=== PATIENT | male | born 1965 | race African-American/Black ===

== ENCOUNTER 2024-07-27 14:36 | Outpatient (AMB) | payer MEDICAID, SELFPAY ==
--- NOTE | 2024-07-27 15:06 | A.OFFVIS_ITS ---
Intake Visit Reasons: erectile dysfunction Intake Note: New Patient presents for initial visit for erectile dysfunction Urology Medications: none Blood Thinner: aspirin Maternal Fetal Physician Required: No Accompanied by: Self / Same As Patient Allergies No Known Allergies Allergy (Verified 07/27/24 15:36) Medication List - Last Reconciled 07/27/24 by FRANK Deshpande- amlodipine 5 mg PO aspirin 81 mg PO DAILY atorvastatin 40 mg PO DAILY HPI Comments Details: Les is a very pleasant 58-year-old male patient of Dr. Chris. He has a past medical history of cigar dependence, type 2 diabetes, PTSD, depression, history of incarceration from 2012 to 2017, hypertension, and erectile dysfunction. He presents to the office today as a new patient for erectile dysfunction. In discussion with the patient today he reports having fo llowed up with his PCP in discussing ongoing issues he has been experiencing with his erections over the last 2-3 years at which time recommendations were made for urology referral for further assessment evaluation. When asked he does report to being able to obtain and maintain his erections however he does not feel there was firm as with a had been previously. He does report libido. He otherwise denies any bothersome urinary issues. He denies urinary urgency, urinary frequency, incontinence, nocturia, hematuria, dysuria, foul smelling urine, changes to urinary stream, flank pain, fever, and or chills. He is happy with his current voiding parameters. In office urinalysis results reviewed with the patient today. We discussed at length potential causes of erectile dysfunction as well as further treatment options and risks and benefits of these treatment options. We also discussed importance of lifestyle modifications to assist with this urological condition as well as overall health and well-being. All questions were answered. He otherwise offers no other issues or concerns at this time. Discussion Notes During the consultation, we discussed the patient's erectile dysfunction, which has been ongoing for a few years. Contributing lifestyle factors, including stress, sleep deprivation, and past alcohol consumption, were reviewed. We discussed the importance of lifestyle modifications, such as diet and exercise, as they can mitigate diabetes and improve erectile function. I proposed starting the patient on daily Tadalafil (Cialis) 5 mg, explaining the potential benefits and how it might assist in improving erectile function. The risk of side effects was also addressed. The patient expressed understanding and agreement with this approach. Continuous evaluation of symptoms will be necessary to potentially adjust the treatment plan Plan The patient will start a daily regimen of Tadalafil at 5 mg to manage erectile dysfunction, based on his reported symptoms and lifestyle evaluations. The choice of Tadalafil was made considering its efficacy and dosing convenience. It is important for the patient to adhere to lifestyle modifications to complement the medication, such as a balanced diet and exercise, to help manage diabetes and improve overall erectile function. This treatment and any modifications will be reassessed at the next follow-up appointment. The patient understands the plan, the potential need for dosage adjustments, and will monitor the medication's effectiveness and any side effects. [facility] Medical History Erectile dysfunction Tobacco abuse Type 2 diabetes mellitus without complication, without long-term current use of insulin Post traumatic stress disorder (PTSD) Depression, major, in remission Class 1 obesity due to excess calories with body mass index (BMI) of 33.0 to 33.9 in adult Decreased hearing of right ear History of incarceration Hypertension Pre-diabetes Surgical History History of open reduction and internal fixation (ORIF) procedure Review of Systems Const All systems reviewed & are unremarkable except as noted in HPI and below Physical Exam Const General: cooperative, healthy appearing, comfortable, no acute distress, well developed, alert and awake Orientation/consciousness: patient oriented x3 Limitations: no limitations HEENT Head: Yes normal to inspection, Yes normocephalic and Yes atraumatic Ears: hearing grossly normal bilaterally Eyes General: appearance normal, both eyes and all related structures Neck Neck: Yes normal visual inspection and Yes trachea midline Chest Chest palpation & inspection: normal inspection of the chest Resp Effort & Inspection: normal respiratory effort and able to speak in complete sentences Cardio Rate: regular rate GI Inspection: Yes normal to inspection General: Yes no CVA tenderness Back/Spine/Pelvis Back: no CVA tenderness Skin General skin exam: no rashes or lesions noted Neuro General: patient oriented x3 Extrem General: Yes normal to inspection Psych Appearance: grossly normal and well kempt Mental Status: mental status grossly normal Speech and movement: Normal speech and movement present and Clear speech present Affect: normal affect Attitude: cooperative Thought process: Normal thought process present Thought content: Normal thought content present Insight: Fair insight present (Psych) Judgement: Fair judgement present (Psych) Results AMB Urinalysis, Automated UA Leukoctes 0 Manuel/uL Last Edit by [employer] on 07/27/24 15:34 UA Nitrite Last Edit by [employer] on 07/27/24 15:34 UA Urobilinogen 0.2 mg/dL Last Edit by [employer] on 07/27/24 15:34 UA Protein 0 mg/dL Last Edit by [employer] on 07/27/24 15:34 UA pH 5.5 Last Edit by [employer] on 07/27/24 15:34 UA Blood 0 Александр/uL Last Edit by [employer] on 07/27/24 15:34 UA Specific Hershey 1.030 Last Edit by [employer] on 07/27/24 15:34 UA Ketone Last Edit by [employer] on 07/27/24 15:34 UA Bilirubin 0 mg/dL Last Edit by [employer] on 07/27/24 15:34 UA Glucose 0 mg/dL Last Edit by [employer] on 07/27/24 15:34 Results Reviewed Results Reviewed: Laboratory Last Values Urine pH (Auto) 5.5 07/27/24 15:32 Specific Hershey (Auto) 1.030 07/27/24 15:32 Urine Protein (Auto) 0 mg/dL 07/27/24 15:32 Glucose (UA)(Auto) 0 mg/dL 07/27/24 15:32 Urine Blood (Auto) 0 Александр/uL 07/27/24 15:32 Urine Bilirubin (Auto) 0 mg/dL 07/27/24 15:32 Urine Urobilinogen (Auto) 0.2 mg/dL 07/27/24 15:32 Leukocyte Esterase (Auto) 0 Manuel/uL 07/27/24 15:32 Assessment & Plan Assessment & Plan (1) Erectile dysfunction associated with type 2 diabetes mellitus: Code(s): E11.69 - Type 2 diabetes mellitus with other specified complication; N52.1 - Erectile dysfunction due to diseases classified elsewhere Category: Medical Plan In office urinalysis results reviewed with the patient today; as noted above. We discussed further treatment options of erectile dysfunction as well as risks and benefits of these treatment options We discussed penile pump in ring We discussed importance of lifestyle modifications to assist with ED as well as overall health and well-being. Will obtain PSA and A1c for further assessment evaluation. Start Cialis 5 mg daily as discussed and prescribed. He currently denies any bothersome urinary issues or concerns. Reports be happy with current voiding parameters. Follow-up in 3 months with labs; or sooner with any issues, concerns, and or questions. Orders: Orders Hemoglobin A1c Today E11.9 - Type 2 diabetes mellitus without complications AMB Urinalysis Automated Today Z13.9 - Encounter for screening, unspecified Prostate Specific Antigen Today E11.69 - Type 2 diabetes mellitus with other specified complication, N52.1 - Erectile dysfunction due to diseases classified elsewhere Medications: New tadalafil (Cialis) [id number] [facility] [id number] Member [id number] 5 mg PO DAILY 90 days 90 tabs 0RF Patient Instructions: The patient had an opportunity to ask questions regarding the treatment plan. All questions were answered. Physical exam, labs, and imaging were discussed and reviewed in detail. As well as risks, benefits, and discussion of treatment choices. No major barriers to understanding were identified. The patient expressed understanding and agreement with the above treatment plan. The patient was made aware they should contact our office by phone for worsening of their current condition, the appearance of new symptoms, or with any questions or concerns. Compliance is encouraged with any medications and follow up testing that is ordered. It is a privilege to be allowed the opportunity to participate in? your urological care.? Again, if you have any questions or concerns If you have any questions or concerns please do not hesitate to contact me. The office is [phone]. This note is constructed using voice recognition software. While every effort has been made to ensure accuracy bag end sewer errors may have been included. Yours sincerely, ASIM Deshpande Coding Level of Care Code New Pt Level 4 (23145) Diagnoses Erectile dysfunction associated with type 2 diabetes mellitus E11.69; N52.1
--- OUTSIDE RECORDS SUMMARY | 2024-07-27 17:15 | XMS_ITS | Encounter Summary ---
Author Organization [facility] Address [address] [place] [address] Care Team Providers Care Customs Broker Name Role Phone Elsa Chris Primary Care Provider [phone] Encounter Details Date Type Department Care Team ([facility] st Contact Info) Description 07/26/2024 Interim Notes [address] [phone] Elsa Chris PA [address] [place] [address] Social History Tobacco Use Types Packs/Day Years Used Date Smoking Tobacco: Former Cigarettes Cigars Passive Smoke Exposure: Never Smokeless Tobacco: Never Comments:QUIT cigs a few mon ths ago. Alcohol Use Standard Drinks/Week Comments Not Currently 0 (1 standard drink = 0.6 oz pur e alcohol) Social Connections Answer Date Recorded Connectedness 0 12/20/2023 Financial Resource Strain Answer Date R ecorded Financial Resource Strain 0 2018 Stress Answer Date Recorded Stress 0 11/21/2018 Physical Activity Answer Date Recorded Physical Activity 0 11/21/2018 Food Insecurity Answer Date Recorded Food 0 12/30/2023 Transportation Needs Answer Date Record ed Transportation 0 11/21/2018 Housing Stability Answer Date Recorded Housing 0 11/21/2018 Safety and Environment Answer Date Jaden rded Safety 0 11/21/2018 Utilities Answer Date Recorded Utilities 0 11/21/2018 Employment Answer Date Recorded Stress 0 12/20/2023 Sex and Gender Information Value Date Recorded Sex Assigned at Male 11/15/2017 6:04 AM PDT Legal Sex Male 6:18 AM PDT Gender Identity Male 11/15/2017 6:04 AM PDT Sexual Orientation Straight 11/15/2017 6: 04 AM PDT 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 Not on file Not on file documented as of this encounter Progress Notes * Brenden Porter MA - 07/26/2024 9:15 AM EDT [employer] form and last ov visit fax to [phone] and sent to [facility] documented in this encounter Plan of Treatment Upcoming Encounters Date Type Department Care Team (Late st Contact Info) Description 07/31/2024 1:00 PM EDT Office Visit [facility] [address] [place] [phone] Rosi Greenberg, DMD [address] [place] [address] 01/12/2025 1:00 PM EDT Office Visit [facility] [address] [place] [phone] [place] Raisa Ambar [address] [place] [address] documented as of this encounter Visit Diagnoses Not on filedocumented in this encounter Additional Health Concerns Assessment Noted Time PHQ-9 Depression Total Score: 0 07/19/19 25 2:44 PM PDT documented as of this encounter Care Teams Customs Broker Relationship Specialty Start Date End Date Elsa Chris PA [address] [place] [id number] PCP - General Primary Care 07/30/23 documented as of this encounter
--- OUTSIDE RECORDS SUMMARY | 2024-07-27 17:15 | XMS_ITS | Clinical Summary ---
Author Organization [facility] Address [address] [place] [address] Care Team Providers Care Fish Warden Name Role Phone Elsa Chris Primary Care Provider [phone] Source Comments PLEASE NOTE, if this patient is a minor, it may be UNLAWFUL to discuss sensitive information that is contained in these records (such as FAMILY PLANNING, MENTAL HEALTH or SUBSTANCE ABUSE) with the minor patient's parent or other person without the patient's specific authorization.[facility] Allergies No known active allergies Medications blood pressure monitorIndicatio ns:Essential hypertension Lifetime need 1 Kit 021 Active blood-glucose meter monitoring kitIndications:T ype 2 diabetes mellitus without complication, without long-term current use of insulin ([facility]) as needed for blood glucose monitoring FREESTYLE GLUCOMETER. Dx: E11.9 Check BG once daily. 1 Each 021 Active blood pressure kit med and lrgIndications:E ssential hypertension Check BP daily 1 Kit 023 Active alcohol swabs Check blood glucose once daily in the AM before breakfast 100 Each 2 023 Active lancets (FREESTYLE LANCETS) 28 gauge 4 (four) times daily before meals and nightly 100 Each 5 023 Active MISCELLANEOUS MEDICAL SUPPLY MISCIndications: Essential hypertension by miscellaneous route daily Blood pressure Monitor size M. Dx: hypertension Duration: lifetime 1 Each 024 Active aspirin [address] tabletIndication s:Essential hypertension Take 1 Tablet by mouth once daily 90 Tablet 1 024 Active ibuprofen 600 mg tabletIndication s:Chronic apical periodontitis Take 1 Tablet by mouth 4 (four) times daily as needed for mild pain 20 Tablet 024 Active sildenafiL (VIAGRA) 25 mg tabletIndication s:Erectile dysfunction, unspecified erectile dysfunction type Take 1 Tablet by mouth once daily as needed for erectile dysfunction 30 Tablet 1 025 Active blood sugar diagnostic (FREESTYLE LITE STRIPS) stripsIndication s:Type 2 diabetes mellitus without complication, without long-term current use of insulin (HCC-CMS) 1 Each 4 (four) times daily before meals and nightly 100 Each 5 025 Active atorvastatin (LIPITOR) 40 mg tabletIndication s:Type 2 diabetes mellitus without complication, without long-term current use of insulin ([facility]) Take 1 Tablet by mouth once daily 90 Tablet 1 025 Active amLODIPine (NORVASC) 5 mg tabletIndication s:Essential hypertension Take 1 Tablet by mouth once daily 90 Tablet 025 Active nicotine (NICODERM, STEP 1) 21 mg/24 hr patchIndications :Tobacco abuse Place 1 Patch onto the skin once daily (every 24 hours) Apply new patch to non-hairy, clean, dry skin on the upper body or upper outer arm; each patch should be applied to a different site. Apply immediately after removing backing from patch; press onto skin for ~10 seconds. Patch may be worn for 16 or 24 hours. 42 Patch 024 2024 Discontinued(T herapy completed/Not needed) nicotine (NICODERM, STEP 2) 14 mg/24 hr patchIndications :Tobacco abuse Place 1 Patch onto the skin once daily (every 24 hours) 28 Patch 024 2024 Discontinued(T herapy completed/Not needed) nicotine (NICODERM, STEP 3) 7 mg/24 hr patchIndications :Tobacco abuse Place 1 Patch onto the skin once daily (every 24 hours) 28 Patch 024 2024 Discontinued(T herapy completed/Not needed) amLODIPine (NORVASC) 5 mg tabletIndication s:Essential hypertension Take 1 Tablet by mouth once daily 90 Tablet 024 2024 Discontinued(R eorder (E-Cancel Not Sent)) atorvastatin (LIPITOR) 40 mg tabletIndication s:Type 2 diabetes mellitus without complication, without long-term current use of insulin ([facility]) Take 1 Tablet by mouth once daily 90 Tablet 1 024 2024 Discontinued(R eorder (E-Cancel Not Sent)) blood sugar diagnostic (FREESTYLE LITE STRIPS) stripsIndication s:Type 2 diabetes mellitus without complication, without long-term current use of insulin ([facility]) daily 50 Each 5 025 2024 Discontinued Active Problems Problem Noted Date Diagnosed Date Erectile dysfunction 07/18/2024 Tobacco abuse 10/06/2023 Type 2 diabetes mellitus wit hout complication, without long-term current use of insulin ([facility]) 09/22/2023 PTSD (post-traumatic stress disorder) 07/09/2023 Overview (07/09/2023): Was diagnosed a couple years ago with PTSD when he was living in a senior care. Depression, major, in remission ([facility]) 0 11/10/2022 Encounter for screening colonoscopy 11/10/2022 History of open reduction an d internal fixation (ORIF) procedure 09/23/2021 HTN (hypertension) 11/15/2017 History of incarceration [id number] 11/15/2017 Decreased hearing, right 11/15/2017 Resolved Problems Problem Noted Date Diagnosed Date Resolved Date Class 1 obesity due to exces s calories with serious comorbidity and body mass index (BMI) of 33.0 to 33.9 in adult 12/30/2018 07/18/2024 Encounters Date Type Department Care Team Description 07/26/2024 Interim Notes [address] [phone] Elsa Chris PA 07/18/2024 2:20 PM EDT Office Visit [address] [phone] Elsa Chris PA Annual physical exam (Primary Dx); Primary hypertension; Type 2 diabetes mellitus without complication, without long-term current use of insulin ([facility]); PTSD (post-traumatic stress disorder); Erectile dysfunction, unspecified erectile dysfunction type; Essential hypertension 07/13/2024 2:20 PM EDT Office Visit [facility] [address] [place] [phone] Dionicio, Rosi, DMD Tooth missing, unspecified edentulism (Primary Dx) 07/12/2024 Interim Notes [address] [phone] Chio Tsang [place] 07/11/2024 Interim Notes [address] [phone] Sherry Sánchez [place] 07/06/2024 2:00 PM EDT Office Visit [facility] [address] [place] [phone] Raisa Wells Encounter for dental examination and cleaning with abnormal findings (Primary Dx); Stage 3 grade C localized periodontitis per AAP/EFP 2017 classification 07/04/2024 Interim Notes [address] [phone] Elsa Chris PA 06/30/2024 2:20 PM EDT Office Visit [facility] [address] [place] [phone] Dionicio, Rosi, DMD Tooth missing, unspecified edentulism (Primary Dx) 06/16/2024 2:20 PM EDT Office Visit [facility] [address] [place] [phone] Dionicio, Rosi, DMD Tooth missing, unspecified edentulism (Primary Dx) 06/08/2024 1:00 PM EST Office Visit [facility] [address] [place] [phone] Dionicio, Rosi, DMD Tooth missing, unspecified edentulism (Primary Dx) 06/07/2024 10:00 AM EST Telemedicine Visit [address] [phone] Elsa Chris PA Erectile dysfunction, unspecified erectile dysfunction type (Primary Dx) 06/02/2024 1:40 PM EST Office Visit [facility] [address] [place] [phone] Rsoi Greenberg, DMD Tooth missing, unspecified edentulism (Primary Dx) 05/26/2024 2:20 PM EST Office Visit [facility] [address] [place] [phone] Rosi Greenberg, DMD Tooth missing, unspecified edentulism (Primary Dx) 05/19/2024 1:40 PM EST Office Visit [facility] [address] [place] [phone] Rosi Greenberg, DMD Tooth missing, unspecified edentulism (Primary Dx) from Last 3 Months Immunizations Immunization Administration Dates Next Due Hep A, adult 05/06/2021,08/06/2020 Hep B, Adult/Adol (ENERGIX/RECOMBIVAX) 9,11/01/2018 Hep B,adult,adjuvanted (HEPLISAV) 08/06/2020 Moderna COVID-19 Vaccine, re d cap blue label, 12+ Primary Series 05/06/2021,03/18/2021 PNEUMOCOCCAL POLYSACCHARIDE PPV23 11/01/2018 PPD 04/26/2018 TDAP 07/08/2021,11/01/2018 ZOSTER VACCINE, RECOMBINANT (SHINGRIX) 2,08/06/2020 Family History Medical History Relation Name Comments Cancer Father stomach cancer? Diabetes Father Diabetes Mother Cancer Sister breast? Relation Name Status Comments Father Mother Sister Alive Social History Tobacco Use Types Packs/Day Years Used Date Smoking Tobacco: Former Cigarettes Cigars Passive Smoke Exposure: Never Smokeless Tobacco: Never Tobacco Cessation:Counseling Given: Not Answered Comments:QUIT cigs a few months ago. Alcohol Use Standard Drinks/Week Comments Not [...] Industry Job Start Date Job End Date [email or web address] Not on file Not on file Not on file Last Filed Vital Signs Vital Sign Reading Time Taken Comments Blood Pressure 118/80 07/18/2024 2:44 PM EDT Pulse 63 07/18/2024 2:44 PM EDT Temperature 36.7 ??C (98 ??F) 07/18/2024 2:44 PM EDT Respiratory Rate 18 07/18/2024 2:44 PM EDT Oxygen Saturation 98% 07/18/2024 2:44 PM EDT Inhaled Oxygen Concentration - - Weight 84.8 kg (187 lb) 07/18/2024 2:44 PM EDT Height 175.3 cm (5' 9 ) 07/18/2024 2:44 PM EDT Body Mass Index 27.62 07/18/2024 2:44 PM EDT Plan of Treatment Upcoming Encounters Date Type Department Care Team (Late st Contact Info) Description 07/31/2024 1:00 PM EDT Office Visit [facility] [place] [phone] Rosi Greenberg, DMD [address] [place] [address] 01/12/2025 1:00 PM EDT Office Visit [facility] [place] [phone] Raisa Wells Y [address] [place] [address] Health Maintenance Due Date Last Done Comments Dental Perio Charting [address] CT Colonography 11/07/2008 Colonoscopy 11/07/2008 Colorectal Cancer Screening 11/07/2008 FIT/gFOBT 11/07/2008 Fecal DNA 11/07/2008 Flexible Sigmoidoscopy 11/07/2008 Imm-Pneumococcal (2 of 2 - PCV) 11/02/2019 11/01/2018 Diabetes Foot Exam 11/11/2023 11/10/2022 Lipid Screening 02/12/2024 02/11/2023, 04/2021, 08/06/2020 Diabetes HbA1c 04/07/2024 10/06/2023, 12/2022, 05/06/2021, Additional history exists Imm-Influenza (#1) 2024 Postponed from 12/05/2023 (Patient postponement) Tobacco Cessation Counseling (#1) 10/05/2024 11/10/2022 Tobacco Screening 10/05/2024 10/06/2023, 11/10/2022 Depression Monitoring 10/17/2024 07/18/2024 , 04/18/2024, 01/06/2024, Additional history exists [id number] ( season) 2024 05/06/2021, 03/18/2021 Postponed from 12/05/2023 (Patient postponement) LTBI Screening (#1) 01/05/2025 01/06/2024, 9 Serum Creatinine 01/05/2025 01/06/2024, 04/2021, 08/06/2020 Urine Albumin Creatinine Ratio Screening 01/05/2025 01/06/2024, 11/29/2018 Dental Prophy 01/07/2025 07/06/2024, 03/13/2024 Retinopathy Screening 06/28/2025 06/28/2024 (Managed by Outside Provider), 03/06/2023 Dental BW 07/08/2025 07/06/2024, 03/13/2024 Dental Examination 07/08/2025 07/06/2024, 1 05/14/2023, 10/06/2023 Annual Preventive Care Visit 07/18/2025 07/18/2024, 11/10/2022, 11/15/2017 Anxiety Screening 07/18/2025 07/18/2024 Dental FMX/Pano 03/15/2029 03/13/2024 Imm-DTaP/Tdap/Td (3 - Td or Tdap) 07/09/2031 07/08/2021, 11/01/2018 HIV Screening Completed 08/06/2020 Hepatitis C Screening Completed 08/06/2020 Imm-Hepatitis B Completed 08/06/2020, 11/05, 11/01/2018 Imm-Hepatitis A Completed 05/06/2021, 08/06/2020 Imm-Zoster, Recombinant Completed 05/06/2021, 08/06 Alcohol and Drug Screen Completed 06/08/19, 04/18/2024, 01/06/2024, Additional history exists Procedures Procedure Name Priority Date/Time Associated Diagnosis Comments OFFICE VISIT OBSERVATION NO OTHER SRVC PERFORMED Routine 07/13/2024 2:20 PM EDT Tooth missing, unspecified edentulism PERIODIC ORAL EVALUATION ESTABLISHED PATIENT Routine 07/06/2024 2:00 PM EDT Encounter for dental examination and cleaning with abnormal findings Stage 3 grade C localized periodontitis per AAP/EFP 2017 classification DENTAL CASE MANAGEMENT - MOTIVATIONAL INTV Routine 07/06/2024 2:00 PM EDT Encounter for dental examination and cleaning with abnormal findings Stage 3 grade C localized periodontitis per AAP/EFP 2017 classification PROPHYLAXIS - ADULT Routine 07/06/2024 2 :00 PM EDT Encounter for dental examination and cleaning with abnormal findings Stage 3 grade C localized periodontitis per AAP/EFP 2017 classification BITEWINGS - FOUR RADIOGRAPHIC IMAGES Routine 07/06/2024 2:00 PM EDT Encounter for dental examination and cleaning with abnormal findings Stage 3 grade C localized periodontitis per AAP/EFP 2017 classification CARIES RISK ASSESSMENT & DOC FINDING HIGH RISK Routine 07/06/2024 2:00 PM EDT Encounter for dental examination and cleaning with abnormal findings Stage 3 grade C localized periodontitis per AAP/EFP 2017 classification NUTRITIONAL COUNSELING CONTROL OF DENTAL DISEASE Routine 07/06/2024 2:00 PM EDT Encounter for dental examination and cleaning with abnormal findings Stage 3 grade C localized periodontitis per AAP/EFP 2017 classification ORAL HYGIENE INSTRUCTIONS Routine 07/06/2024 2:00 PM EDT Encounter for dental examination and cleaning with abnormal findings Stage 3 grade C localized periodontitis per AAP/EFP 2017 classification ORAL CANCER SCREENING Routine 07/06/2024 2:00 PM EDT Encounter for dental examination and cleaning with abnormal findings Stage 3 grade C localized periodontitis per AAP/EFP 2017 classification CASE PRESENTATION SUBS DTL & EXTENSIVE TX PLN Routine 07/06/2024 2:00 PM EDT Encounter for dental examination and cleaning with abnormal findings CASE PRESENTATION SUBS DTL & EXTENSIVE TX PLN Routine 06/30/2024 2:20 PM EDT Tooth missing, unspecified edentulism 30,29,26,25,24,23,21, 20,18 MANDIBULAR PARTIAL DENTURE - RESIN BASE Routine 06/30/2024 2:20 PM EDT Tooth missing, unspecified edentulism 3,5,8,11,13,14,15 MAXILLARY PARTIAL DENTURE - RESIN BASE Routine 06/30/2024 2:20 PM EDT Tooth missing, unspecified edentulism REMOVABLE PARTIAL DENTURE - IN PROCESS Routine 06/16/2024 2:20 PM EDT Tooth missing, unspecified edentulism REMOVABLE PARTIAL DENTURE - IN PROCESS Routine 06/08/2024 1:00 PM EST Tooth missing, unspecified edentulism REMOVABLE PARTIAL DENTURE - IN PROCESS Routine 06/02/2024 1:40 PM EST Tooth missing, unspecified edentulism REMOVABLE PARTIAL DENTURE - IN PROCESS Routine 05/26/2024 2:20 PM EST Tooth missing, unspecified edentulism REMOVABLE PARTIAL DENTURE - IN PROCESS Routine 05/19/2024 1:40 PM EST Tooth missing, unspecified edentulism INTRAORAL - COMP SERIES OF RADIOGRAPHIC IMAGES Routine 03/13/2024 1:00 PM EST Encounter for dental examination QUANTIFERON-TB GOLD PLUS Routine 01/06/2024 3:24 PM EDT Tuberculosis screening CREATININE BLOOD Routine 01/06/2024 3:24 PM EDT Essential hypertension MICROALBUMIN/CREATINI NE RATIO, URINE, RANDOM Routine 01/06/2024 3:24 PM EDT Type 2 diabetes mellitus without complication, without long-term current use of insulin ([facility]) HEMOGLOBIN GLYCOSYLATED A1C Routine 10/06/2023 3:09 PM EDT Type 2 diabetes mellitus without complication, without long-term current use of insulin ([facility]) REFERRAL TO OPHTHALMOLOGY Routine 03/06/2023 3:00 AM EST Essential hypertension Prediabetes LIPID PANEL Routine 02/11/2023 11:02 AM EST Screening for lipid disorders HIV 1/2 AG & AB W/RFLX (4TH GEN) Routine 08/06/2020 1:38 PM EDT Screening for viral disease ACUTE HEPATITIS PANEL W/RFLX Routine 08/06/2020 1:38 PM EDT Screening for viral disease from Last 3 Months or Most Recently Relevant to Health Maintenance Results * QUANTIFERON-TB GOLD PLUS (01/06/2024 3:24 PM EDT) QUANTIFERON NEGATIVE NEGATIVE [employer] [facility] Comment: Negative test result. M. tuberculosis complex infection unlikely. NIL 0.02 IU/mL [facility] MITOGEN-NIL >10.00 IU/mL [employer] [facility] TB1-NIL 0.02 IU/mL [employer] TB2-NIL 0.00 IU/mL [employer] [facility] Comment: The Nil tube value reflects the background interferon gamma immune response of the patient's blood sample. This value has been subtracted from the patient's displayed TB and Mitogen results. Lower than expected results with the Mitogen tube prevent false-negative Quantiferon readings by detecting a patient with a potential immune suppressive condition and/or suboptimal pre-analytical specimen handling. The TB1 Antigen tube is coated with the M. tuberculosis-specific antigens designed to elicit responses from TB antigen primed CD4+ helper T-lymphocytes. The TB2 Antigen tube is coated with the M. tuberculosis-specific antigens designed to elicit responses from TB antigen primed CD4+ helper and CD8+ cytotoxic T-lymphocytes. For additional information, please refer to https://education.[employer]it[employer]EV Technologies/faq/BNX143 (This link is being provided for informational/ educational purposes only.) Blood Blood / Unknown 01/06/2024 3 :24 PM EDT 01/06/2024 3:24 PM EDT Ro Cronin PA-C LAB - BLOOD DRAW Final Resul t [facility] [address] [address], [employer] [facility] [address] [place] [address] * MICROALBUMIN/CREATININE RATIO, URINE, RANDOM (01/06/2024 3:24 PM EDT) CREATININE, RANDOM URINE 164 20 - 320 mg/dL [facility] MICROALBUMIN <0.2 mg/dL [facility] Comment: Reference Range Not established MICROALBUMIN/CREA TININE RATIO, RANDOM URINE NOTE <30 [facility] Comment: NOTE: The urine albumin value is less than 0.2 mg/dL therefore we are unable to calculate excretion and/or creatinine ratio. The ADA defines abnormalities in albumin excretion as follows: Albuminuria Category ?Result (mg/g creatinine) Normal to Mildly increased ?? <30 Moderately increased ? 30-299 Severely increased ? > OR = 300 The ADA recommends that at least two of three specimens collected within a 3-6 month period be abnormal before considering a patient to be within a diagnostic category. Urine Urine specimen / Unknown 01/06/2024 3:24 PM EDT 01/06/2024 3:24 PM EDT us Ro Cronin PA-C LAB - NO BLOOD DRAW Final Re sult [facility] [address] [address], [employer] [address] [phone] * CREATININE BLOOD (01/06/2024 3:24 PM EDT) CREATININE (blood) 0.88 0.70 - 1.35 mg/dL [facility] EGFR 98 > OR = 60 mL/min/1.7 3m2 [facility] Blood Blood / Unknown 01/06/2024 3 :24 PM EDT 01/06/2024 3:24 PM EDT us Loreiny Penalo PA-C LAB - BLOOD DRAW Edited Resu lt - Final Performing Organization Address [facility]/ZIP Co [place] [address], [facility] [address] [phone] * (ABNORMAL) HEMOGLOBIN GLYCOSYLATED A1C (10/06/2023 3:09 PM EDT) HEMOGLOBIN A1C 5.8(H) <5.7 % of total Hgb [facility] Comment: For someone without known diabetes, a hemoglobin A1c value between 5.7% and 6.4% is consistent with prediabetes and should be confirmed with a follow-up test. For someone with known diabetes, a value <7% indicates that their diabetes is well controlled. A1c targets should be individualized based on duration of diabetes, age, comorbid conditions, and other considerations. This assay result is consistent with an increased risk of diabetes. Currently, no consensus exists regarding use of hemoglobin A1c for diagnosis of diabetes for children. Blood Blood / Unknown 10/06/2023 3 :09 PM EDT 10/06/2023 3:10 PM EDT Elsa PASCAL LAB - BLOOD DRAW Final Result Performing Organization Address [facility] Co de [place] [address], [facility] [address] [address] * REFERRAL TO OPHTHALMOLOGY (03/06/2023 3:00 AM EST) 03/06/2023 3:00 AM EST Lea Gaytan TELEGRAPH REPEATER MECHANIC-C REFERRAL Edited Resul t - Final * LIPID PANEL (02/11/2023 11:02 AM EST) CHOLESTEROL, TOTAL 154 <200 mg/dL [facility] HDL CHOLESTEROL 57 > OR = 40 mg/dL [facility] TRIGLYCERIDES 96 <150 mg/dL [facility] LDL-CHOLESTEROL 79 99 mg/dL (calc) [facility] Comment: Reference range: <100 Desirable range <100 mg/dL for primary prevention; ?? <70 mg/dL for patients with CHD or diabetic patients with > or = 2 CHD risk factors. LDL-C is now calculated using the Mati calculation, which is a validated novel method providing better accuracy than the Friedewald equation in the estimation of LDL-C. Luke COOPER et al. JARAD. 2013;310(19): 6944-2347 (http://[employer].Memrise/faq/FLF007) CHOL/HDLC RATIO 2.7 <5.0 (calc) [employer] NON-HDL CHOLESTEROL 97 <130 mg/dL (calc) [employer] Comment: For patients with diabetes plus 1 major ASCVD risk factor, treating to a non-HDL-C goal of <100 mg/dL (LDL-C of <70 mg/dL) is considered a therapeutic option. Blood Blood / Unknown 02/11/2023 1 1:02 AM EST 02/11/2023 11:03 AM EST Narrative [facility] - 02/12/2023 12:03 AM EST FASTING:NO Viola PASCAL LAB - BLOOD DRAW Final Result [facility] [address] [place] [address], [employer] [address] [place] [phone] * ACUTE HEPATITIS PANEL W/RFLX (08/06/2020 1:38 PM EDT) HEPATITIS B SURFACE ANTIGEN NON-REACT NINO NON-REACT NINO [employer] [facility] HEPATITIS C ANTIBODY NON-REACT NINO NON-REACT NINO [employer] [facility] SIGNAL TO CUT-OFF 0.01 <1.00 [employer] Comment: HCV antibody was non-reactive. There is no laboratory evidence of HCV infection. In most cases, no further action is required. However, if recent HCV exposure is suspected, a test for HCV RNA (test code 83671) is suggested. For additional information please refer to http://[employer].Democravise/faq/GHU46x9 (This link is being provided for informational/ educational purposes only.) HEPATITIS A IGM ANTIBODY NON-REACT NINO NON-REACT NINO [employer] [facility] COMMENT [facility] HEPATITIS B CORE IGM ANTIBODY NON-REACT NINO NON-REACT NINO [facility] Blood Blood / Unknown 08/06/2020 1 :38 PM EDT 08/06/2020 1:38 PM EDT Narrative [employer] [facility] [employer] - 08/08/2020 5:51 AM EDT For additional information, please refer to http://education.Democravise/faq/YRG433 (This link is being provided for informational/ educational purposes only.) Lea Gaytan TELEGRAPH REPEATER MECHANIC-C LAB - BLOOD DRAW Final Resul t [facility] [place] [facility] [address] [address], [facility] [address],[facility] [place] [place] [address] from Last 3 Months or Most Recently Relevant to Health Maintenance Insurance [employer] [place] DENT[place] Care Teams Fish Warden Relationship Specialty Start Date End Date Elsa Chris PA [address] [place] [address] PCP - General Primary Care 07/30/23
== END 2024-07-27 15:36 | disposition home or self-care (01) ==
LOC: HO.HUSH 14:37
PROVIDERS: PCP Student in an Organized Health Care Education/Training Program; Visit Provider Nurse Practitioner Family
DX: E11.69 Type 2 diabetes mellitus with other specified complication (principal); N52.1 Erectile dysfunction due to diseases classified elsewhere; Z13.9 Encounter for screening, unspecified
CPT/HCPCS: 99204

== ENCOUNTER → 2024-07-27 14:36 | Outpatient (BNVA) | payer MEDICAID, SELFPAY | PROVIDERS: PCP Student in an Organized Health Care Education/Training Program; Visit Provider Nurse Practitioner Family | DX: E11.69 Type 2 diabetes mellitus with other specified complication (principal); N52.1 Erectile dysfunction due to diseases classified elsewhere | CPT/HCPCS: 81003; 99212 ==

== ENCOUNTER 2024-10-26 15:19 | Outpatient (AMB) | payer MEDICAID, SELFPAY ==
--- OUTSIDE RECORDS SUMMARY | 2024-10-26 15:21 | XMS_ITS | Clinical Summary ---
Author Organization [facility] Address [address] [place] [address] Care Team Providers Care Accounts Receivable Specialist Name Role Phone Elsa Chris Primary Care Provider [phone] Source Comments PLEASE NOTE, if this patient [...] complication, without long-term current use of insulin ([facility]) as needed for blood glucose monitoring FREESTYLE [...] hypertension Duration: lifetime 1 Each 024 Active ibuprofen 600 mg tabletIndication s:Chronic apical periodontitis Take 1 Tablet by mouth 4 (four) times daily as needed for mild pain 20 Tablet 024 Active blood sugar diagnostic (FREESTYLE LITE STRIPS) stripsIndication s:Type 2 diabetes mellitus without complication, without long-term current use of insulin ([facility]) 1 Each 4 (four) times daily before meals and nightly 100 Each 5 025 Active atorvastatin (LIPITOR) 40 mg tabletIndication s:Type 2 diabetes mellitus without complication, without long-term current use of insulin ([facility]) Take 1 Tablet by mouth once daily 90 Tablet 1 025 Active amLODIPine (NORVASC) 5 mg tabletIndication s:Essential hypertension Take 1 Tablet by mouth once daily 90 Tablet 025 Active aspirin [address] tabletIndication s:Essential hypertension Take 1 Tablet by mouth once daily 90 Tablet 1 025 Active chlorhexidine (PERIDEX) 0.12 % solutionIndicati ons:Acute gingivitis, non-plaque induced Rinse with 15 ml for 30 seconds after brushing teeth in the morning and at night. 473 mL 025 Active sildenafiL (VIAGRA) 25 mg tabletIndication s:Erectile dysfunction, unspecified erectile dysfunction type TAKE ONE TABLET BY MOUTH PRIOR TO SEXUAL ACTIVITY 30 Tablet 025 Active sildenafiL (VIAGRA) 25 mg tabletIndication s:Erectile dysfunction, unspecified erectile dysfunction type Take 1 Tablet by mouth once daily as needed for erectile dysfunction 30 Tablet 1 025 2024 Discontinued Active Problems Problem Noted Date Diagnosed Date Erectile dysfunction 07/18/2024 Tobacco abuse 10/06/2023 Type 2 diabetes mellitus wit hout complication, without long-term current use of insulin ([facility]) 09/22/2023 PTSD (post-traumatic stress disorder) 07/09/2023 Overview (07/09/2023): Was diagnosed a couple years ago with PTSD when he was living in a snf. Depression, major, in remission ([facility] V24) Encounter for screening colonoscopy 11/10/2022 History of open reduction an d internal fixation (ORIF) procedure 09/23/2021 HTN (hypertension) 11/15/2017 History of incarceration [id number] 11/15/2017 Decreased hearing, right 11/15/2017 Resolved Problems Problem Noted Date Diagnosed Date Resolved Date Class 1 obesity due to exces s calories with serious comorbidity and body mass index (BMI) of 33.0 to 33.9 in adult 12/30/2018 07/18/2024 Encounters Date Type Department Care Team Description 09/15/2024 Results Follow-Up [address] [phone] Elsa Chris PA 08/29/2024 / TELEPHONE [address] [phone] Aimee Keller, Community Health Worker 08/25/2024 1:20 PM EDT Telemedicine Visit [address] [phone] Elsa Chris PA 08/07/2024 2:00 PM EDT Office Visit [address] [phone] Rosi Greenberg DMD 07/31/2024 1:00 PM EDT Office Visit [facility] [address] [place] [phone] Rosi Greenberg DMD from Last 3 Months Immunizations Immunization Administration Dates Next Due Hep A, adult 05/06/2021,08/06/2020 Hep B, Adult/Adol ([id number]/RECOMBIVAX-AD ULT) 12/02/2018,11/01/2018 Hep B,adult,adjuvanted (HEPLISAV) 08/06/2020 Moderna COVID-19 Vaccine, re d cap blue label, 12+ Primary Series 05/06/2021,03/18/2021 PNEUMOCOCCAL POLYSACCHARIDE PPV23 (Pneumovax 23) 11/01/2018 PPD 04/26/2018 TDAP 07/08/2021,11/01/2018 ZOSTER VACCINE, [...] 0 11/21/2018 Safety and Environment Answer Date Jadne rded Safety 0 11/21/2018 Utilities Answer Date Recorded Utilities 0 11/21/2018 Employment Answer Date Recorded Stress 0 12/20/2023 Sex and Gender Information Value Date Recorded Sex Assigned at Male 11/15/2017 6:04 AM PDT Legal Sex Male 6:18 AM PDT Gender Identity Male 11/15/2017 6:04 AM PDT Sexual Orientation Straight 11/15/2017 6: 04 AM PDT 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 Not on file Not on file Last Filed Vital Signs Vital Sign Reading Time Taken Comments Blood Pressure 140/85 08/07/2024 2:11 PM EDT Pulse 64 08/07/2024 2:11 PM EDT Temperature 36.7 C (98 F) 07/18/2024 2:44 PM EDT Respiratory Rate 18 [...] Care Team (Late st Contact Info) Description 01/12/2025 1:00 PM EDT Office Visit [facility] [address] [place] [phone] Raisa Wells Y [address] [place] [address] Health Maintenance Due Date Last Done Comments Dental Perio Charting [address] CT Colonography 11/07/2008 Colonoscopy 11/07/2008 Colorectal Cancer Screening 11/07/2008 FIT/gFOBT 11/07/2008 Fecal DNA 11/07/2008 Flexible Sigmoidoscopy 11/07/2008 Imm-Pneumococcal 50+ (2 of 2 - PCV) 11/02/2019 11/01/2018 Diabetes Foot Exam 11/11/2023 11/10/2022 [id number] (3 - season) 2023 022, 03/18/2021 Tobacco Cessation Counseling (#1) 10/05/2024 023 Depression Monitoring 11/25/2024 08/25/2024 , 07/18/2024, 04/18/2024, Additional history exists Imm-Influenza (#1) 2024 LTBI Screening (#1) 01/05/2025 01/06/2024, 9 Urine Albumin Creatinine Rat io Screening 01/05/2025 01/06/2024, 11/29/2018 Dental Prophy 01/07/2025 07/06/2024, 03/13/2024 Hemoglobin A1c 02/21/2025 08/21/2024, 0706/2023, 02/11/2023, Additional history exists Retinopathy Screening 06/28/2025 06/28/2024 (Managed by Outside Provider), 03/06/2023 Dental BW 07/08/2025 07/06/2024, 03/13/2024 Dental Examination 07/08/2025 07/06/2024, 1 05/14/2023, 10/06/2023 Annual Wellness (Adult): Ind icated (All Coverage) 07/18/2025 07/18/2024, 11/10/2022, 11/15/2017 Lipid Screening 08/21/2025 08/21/2024, 11/0 12/2022, 05/06/2021, Additional history exists Serum Creatinine 08/21/2025 08/21/2024, 06/2023, 05/06/2021, Additional history exists Anxiety Screening 08/25/2025 08/25/2024 Tobacco Screening 08/25/2025 08/25/2024, 11/10/2022 Dental FMX/Pano 03/15/2029 03/13/2024 Imm-DTaP/Tdap/Td (3 - Td or Tdap) 07/09/2031 022, 11/01/2018 HIV Screening Completed 08/06/2020 Hepatitis C Screening Completed 08/06/2020 Imm-Hepatitis B Completed 08/06/2020, 11/05, 11/01/2018 Imm-Hepatitis A Completed 05/06/2021, 08/06/2020 Imm-Zoster, Recombinant Completed 05/06/2021, 08/06 Alcohol and Drug Screen Completed 06/08/19, 04/18/2024, 01/06/2024, Additional history exists Procedures Procedure Name Priority Date/Time Associated Diagnosis Comments OTHER ORDERS SCANNED DOCUMENT 08/31/2024 3:00 AM EDT OTHER ORDERS SCANNED DOCUMENT 08/30/2024 3:00 AM EDT OTHER ORDERS SCANNED DOCUMENT 08/30/2024 3:00 AM EDT COMPREHENSIVE METABOLIC PANEL Routine 08/21/2024 9:28 AM EDT Annual physical exam BLOOD COUNT COMPLETE AUTO&AUTO DIFRNTL WBC Routine 08/21/2024 9:28 AM EDT Annual physical exam LIPID PANEL Routine 08/21/2024 9:28 AM EDT Annual physical exam HEMOGLOBIN GLYCOSYLATED A1C Routine 08/21/2024 9:28 AM EDT Type 2 diabetes mellitus without complication, without long-term current use of insulin ([facility]) ASSAY OF PROSTATE SPECIFIC ANTIGEN TOTAL Routine 08/21/2024 9:28 AM EDT Annual physical exam OTHER ORDERS SCANNED DOCUMENT 08/15/2024 3:00 AM EDT OFFICE VISIT OBSERVATION NO OTHER SRVC PERFORMED Routine 08/07/2024 2:00 PM EDT Tooth missing, unspecified edentulism OTHER ORDERS SCANNED DOCUMENT 08/01/2024 3:00 AM EDT OFFICE VISIT OBSERVATION NO OTHER SRVC PERFORMED Routine 07/31/2024 1:00 PM EDT Acute gingivitis, non-plaque induced OTHER ORDERS SCANNED DOCUMENT 07/31/2024 3:00 AM EDT LAB SCANNED DOCUMENT 07/27/2024 3:00 AM EDT BITEWINGS - FOUR RADIOGRAPHIC IMAGES Routine 07/06/2024 2:00 PM EDT Encounter for dental examination and cleaning with abnormal findings Stage 3 grade C localized periodontitis per AAP/EFP 2017 classification PROPHYLAXIS - ADULT Routine 07/06/2024 2 :00 PM EDT Encounter for dental examination and cleaning with abnormal findings Stage 3 grade C localized periodontitis per AAP/EFP 2017 classification PERIODIC ORAL EVALUATION ESTABLISHED PATIENT Routine 07/06/2024 2:00 PM EDT Encounter for dental examination and cleaning with abnormal findings Stage 3 grade C localized periodontitis per AAP/EFP 2017 classification INTRAORAL - COMP SERIES OF RADIOGRAPHIC IMAGES Routine 03/13/2024 1:00 PM EST Encounter for dental examination QUANTIFERON-TB GOLD PLUS Routine 01/06/2024 3:24 PM EDT Tuberculosis screening MICROALBUMIN/CREATINI NE RATIO, URINE, RANDOM Routine 01/06/2024 3:24 PM EDT Type 2 diabetes mellitus without complication, without long-term current use of insulin ([facility]) REFERRAL TO OPHTHALMOLOGY Routine 03/06/2023 3:00 AM EST Essential hypertension Prediabetes HIV 1/2 AG & AB W/RFLX (4TH GEN) Routine 08/06/2020 1:38 PM EDT Screening for viral disease ACUTE HEPATITIS PANEL W/RFLX Routine 08/06/2020 1:38 PM EDT Screening for viral disease from Last 3 Months or Most Recently Relevant to Health Maintenance Results * OTHER ORDERS SCANNED DOCUMENT (08/31/2024 3:00 AM EDT) Only the most recent of6 resultswithin the time period is included. 08/31/2024 3:00 AM EDT us Elsa PASCAL SCAN OTHER ORDERS Final Result * BLOOD COUNT COMPLETE AUTO&AUTO DIFRNTL WBC Routine (08/21/2024 9:28 AM EDT) Pathologist [facility] WHITE BLOOD CELL COUNT 4.3 3.8 - 10.8 Thousand/ uL [facility] RED BLOOD CELL COUNT 5.21 4.20 - 5.80 Million/u L [facility] HEMOGLOBIN 15.7 13.2 - 17.1 g/dL [facility] HEMATOCRIT 48.2 38.5 - 50.0 % [facility] MCV 92.5 80.0 - 100.0 fL [facility] MCH 30.1 27.0 - 33.0 pg Digium MCHC 32.6 32.0 - 36.0 g/dL [facility] Comment: For adults, a slight decrease in the calculated MCHC value (in the range of 30 to 32 g/dL) is most likely not clinically significant; however, it should be interpreted with caution in correlation with other red cell parameters and the patient's clinical condition. RDW 12.8 11.0 - 15.0 % [facility] PLATELET COUNT 169 140 - 400 Thousand/ uL [facility] MPV 11.6 7.5 - 12.5 fL [facility] ABSOLUTE NEUTROPHILS 2,081 1,500 - 7,800 cells/uL [facility] ABSOLUTE LYMPHOCYTES 1,600 850 - 3,900 cells/uL [facility] ABSOLUTE MONOCYTES 477 200 - 950 cells/uL [facility] ABSOLUTE EOSINOPHILS 112 15 - 500 cells/uL [facility] ABSOLUTE BASOPHILS 30 0 - 200 cells/uL [facility] NEUTROPHILS PCT 48.4 % QUES T [employer] [facility] LYMPHOCYTES 37.2 % [facility] [employer] [facility] MONOCYTES 11.1 % [facility] EOSINOPHILS 2.6 % [facility] [employer] [facility] BASOPHILS 0.7 % Amanda Huff DBA [facility] DIAG [employer] [facility] Blood Blood / Unknown 08/21/2024 9 :28 AM EDT 08/21/2024 9:29 AM EDT Narrative [employer] - 08/22/2024 7:50 AM EDT FASTING:YES Elsa PASCAL LAB - BLOOD DRAW Edited Result - Final [employer] [address] [address], [place] [address] [address] * ASSAY OF PROSTATE SPECIFIC ANTIGEN TOTAL Routine (08/21/2024 9:28 AM EDT) PSA, TOTAL 1.27 < OR = 4.00 ng/mL [facility] Comment: The total PSA value from this assay system is standardized against the WHO standard. The test result will be approximately 20% lower when compared to the equimolar-standardized total PSA ([place]). Comparison of serial PSA results should be interpreted with this fact in mind. This test was performed using the Siemens chemiluminescent method. Values obtained from different assay methods cannot be used interchangeably. PSA levels, regardless of value, should not be interpreted as absolute evidence of the presence or absence of disease. Blood Blood / Unknown 08/21/2024 9 :28 AM EDT 08/21/2024 9:29 AM EDT Narrative [employer] [facility] - 08/22/2024 7:50 AM EDT FASTING:YES Elsa PASCAL LAB - BLOOD DRAW Edited Result - Final [employer] [address] [address], [place] [address] [address] * (ABNORMAL) HEMOGLOBIN GLYCOSYLATED A1C Routine (08/21/2024 9:28 AM EDT) HEMOGLOBIN A1C 6.2(H) <5.7 % [facility] Comment: For someone without known diabetes, [...] diabetes for children. Blood Blood / Unknown 08/21/2024 9 :28 AM EDT 08/21/2024 9:29 AM EDT Narrative [facility] - 08/22/2024 7:50 AM EDT FASTING:YES us Elsa PACSAL LAB - BLOOD DRAW Edited Result - Final Performing Organization Address City/[facility]/ZIP Co de Phone Number [facility] [address] [address], [place] [address] [address] * LIPID PANEL Routine (08/21/2024 9:28 AM EDT) [facility] Signature CHOLESTEROL, TOTAL 120 <200 mg/dL [facility] HDL CHOLESTEROL 47 > OR = 40 mg/dL [facility] TRIGLYCERIDES 64 <150 mg/dL [facility] LDL-CHOLESTEROL 59 99 mg/dL (calc) [facility] Comment: Reference range: <100 Desirable range <100 mg/dL for primary prevention; <70 mg/dL for patients with CHD or diabetic patients with > or = 2 CHD risk factors. LDL-C is now calculated using the Luke-Leah calculation, which is a validated novel method providing better accuracy than the Friedewald equation in the estimation of LDL-C. Luke SS et al. JARAD. 2013;310(19): 0877-3506 (http://education.Sociagram.com/faq/YDI028) CHOL/HDLC RATIO 2.6 <5.0 (calc) [facility] NON-HDL CHOLESTEROL 73 <130 mg/dL (calc) [facility] Comment: For patients with diabetes plus 1 major ASCVD risk factor, treating to a non-HDL-C goal of <100 mg/dL (LDL-C of <70 mg/dL) is considered a therapeutic option. Blood Blood / Unknown 08/21/2024 9 :28 AM EDT 08/21/2024 9:29 AM EDT Narrative [facility] - 08/22/2024 7:50 AM EDT FASTING:YES us Elsa PASCAL LAB - BLOOD DRAW Final Result Performing Organization Address City/[facility]/ZIP Co de Phone Number [facility] [address] [address], [facility] [address] [place] [address] * (ABNORMAL) COMPREHENSIVE METABOLIC PANEL Routine (08/21/2024 9:28 AM EDT) GLUCOSE 111(H) 65 - 99 mg/dL [facility] Comment: Fasting reference interval For someone without known diabetes, a glucose value between 100 and 125 mg/dL is consistent with prediabetes and should be confirmed with a follow-up test. UREA NITROGEN (BUN) 9 7 - 25 mg/dL [facility] CREATININE (blood) 0.92 0.70 - 1.35 mg/dL [facility] EGFR 95 > OR = 60 mL/min/1. 73m2 [facility] BUN/CREATININE RATIO SEE NOTE: [facility] Comment: Not Reported: BUN and Creatinine are within reference range. SODIUM 139 135 - 146 mmol/L [facility] POTASSIUM 4.5 3.5 - 5.3 mmol/L [facility] CHLORIDE 105 98 - 110 mmol/L [facility] CARBON DIOXIDE 28 20 - 32 mmol/L [facility] CALCIUM 9.5 8.6 - 10.3 mg/dL [facility] PROTEIN, TOTAL 7.0 6.1 - 8.1 g/dL [facility] ALBUMIN 4.2 3.6 - 5.1 g/dL [facility] GLOBULIN 2.8 1.9 - 3.7 g/dL (calc) [facility] ALBUMIN/GLOBULI N RATIO 1.5 1.0 - 2.5 (calc) [facility] BILIRUBIN, TOTAL 0.5 0.2 - 1.2 mg/dL [facility] ALKALINE PHOSPHATASE 73 35 - 144 U/L [facility] AST 19 10 - 35 U/L [facility] ALT 19 9 - 46 U/L [facility] Blood Blood / Unknown 08/21/2024 9 :28 AM EDT 08/21/2024 9:29 AM EDT Narrative [employer] [facility] - 08/22/2024 7:50 AM EDT FASTING:YES us Elsa PASCAL LAB - BLOOD DRAW Final Result [facility] [address] [address], [place] [address] [address] * LAB SCANNED DOCUMENT (07/27/2024 3:00 AM EDT) 07/27/2024 3:00 AM EDT us Elsa PASCAL SCAN LAB Final Result * QUANTIFERON-TB GOLD PLUS (01/06/2024 3:24 PM EDT) QUANTIFERON NEGATIVE NEGATIVE [facility] Comment: Negative test result. M. tuberculosis complex infection unlikely. NIL 0.02 IU/mL [facility] MITOGEN-NIL >10.00 IU/mL [facility] TB1-NIL 0.02 IU/mL [facility] TB2-NIL 0.00 IU/mL [facility] Comment: The Nil tube value reflects the [...] T-lymphocytes. For additional information, please refer to https://education.Decisionlink.A and A Travel Service/faq/JEL496 (This link is being provided for informational/ educational purposes only.) Blood Blood / Unknown 01/06/2024 3 :24 PM EDT 01/06/2024 3:24 PM EDT us Ro Cronin PA-C LAB - BLOOD DRAW Final Resul t [facility] [address] [address], [place] [address] [address] * MICROALBUMIN/CREATININE RATIO, URINE, RANDOM (01/06/2024 3:24 PM EDT) CREATININE, RANDOM URINE 164 20 - 320 mg/dL [facility] MICROALBUMIN <0.2 mg/dL [facility] Comment: Reference Range Not established MICROALBUMIN/CREA TININE RATIO, RANDOM URINE NOTE <30 [facility] Comment: NOTE: The urine albumin value is less than 0.2 mg/dL therefore we are unable to calculate excretion and/or creatinine ratio. The ADA defines abnormalities in albumin excretion as follows: Albuminuria Category Result (mg/g creatinine) Normal to Mildly increased <30 Moderately increased 30-299 Severely increased > OR = 300 The ADA recommends that at least two of three specimens collected within a 3-6 month period be abnormal before considering a patient to be within a diagnostic category. Urine Urine specimen / Unknown 01/06/2024 3:24 PM EDT 01/06/2024 3:24 PM EDT Ro Cronin PA-C LAB URINE AMBULATORY Final R esult [facility] [address] [address], [place] [address] [address] * REFERRAL TO OPTHALMOLOGY (03/06/2023 3:00 AM EST) 03/06/2023 3:00 AM EST Lea Gaytan SCHEDULE PLANNING MANAGER-C REFERRAL Edited Resul t - Final * HEPATITIS PANEL W/RFLX (08/06/2020 1:38 PM EDT) Pathologist [facility] HEPATITIS B SURFACE ANTIGEN NON-REACT NINO NON-REACT NINO [facility] HEPATITIS C ANTIBODY NON-REACT NINO NON-REACT NINO [facility] SIGNAL TO CUT-OFF 0.01 <1.00 [facility] Comment: HCV antibody was non-reactive. There is no laboratory evidence of HCV infection. In most cases, no further action is required. However, if recent HCV exposure is suspected, a test for HCV RNA (test code 28974) is suggested. For additional information please refer to http://Trendlines Group.Sumavisos/faq/HMK08g1 (This link is being provided for informational/ educational purposes only.) HEPATITIS A IGM ANTIBODY NON-REACT NINO NON-REACT NINO [facility] COMMENT [facility] HEPATITIS B CORE IGM ANTIBODY NON-REACT NINO NON-REACT NINO [facility] Blood Blood / Unknown 08/06/2020 1 :38 PM EDT 08/06/2020 1:38 PM EDT Narrative Amanda Huff DBA [facility] - 08/08/2020 5:51 AM EDT For additional information, please refer to http://Trendlines Group.Sumavisos/faq/MXT192 (This link is being provided for informational/ educational purposes only.) Lea Gaytan SCHEDULE PLANNING MANAGER-C LAB - BLOOD DRAW Final Resul t [facility] [address] [address], [facility] [address],[facility] [address] from Last 3 Months or Most Recently Relevant to Health Maintenance Insurance [address] [employer] Care Teams Accounts Receivable Specialist Relationship Specialty Start Date End Date Elsa Chris PA [address] [place] [id number] PCP - General Primary Care 07/30/23
--- OUTSIDE RECORDS SUMMARY | 2024-10-26 15:21 | XMS_ITS | Clinical Summary ---
Author Organization [facility] Address [address] [place] [address] Phone Care Team Providers Care Rn Surgical P[facility] Name Role Phone oDt [facility] Primary [facility] Pr ovider Allergies No known active allergies Medications sildenafiL (VIAGRA) 25 mg tablet Take 1 tablet (25 mg total) by mouth 1 (one) time each day if needed for erectile dysfunction. Active ibuprofen (ADVIL,MOTRIN) 600 mg tablet Take 1 tablet (600 mg total) by mouth every 6 (six) hours if needed for mild pain. Active nicotine (NICODERM CQ) 21 mg/[address] 1 patch on the skin 1 (one) time each day at the same time. Active nicotine (NICODERM CQ) 14 mg/[address] 1 patch on the skin 1 (one) time each day at the same time. Active nicotine (NICODERM CQ) 7 mg/[address] 1 patch on the skin 1 (one) time each day at the same time. Active amLODIPine (NORVASC) 5 mg tablet Take 1 tablet (5 mg total) by mouth 1 (one) time each day. Active aspirin 81 mg EC tablet Take 1 tablet (81 mg total) by mouth 1 (one) time each day. Active atorvastatin (LIPITOR) 40 mg tablet Take 1 tablet (40 mg total) by mouth at bedtime. Active bisacodyL (DULCOLAX) 5 mg EC tablet Take 2 tablets by mouth right before beginning bowel prep. See instructions provided by the office 2 tablet 5 Active polyethylene glycol (Golytely) 236-22.74-6.74 -5.86 gram solution Take 4L by mouth once for one dose. May substitue any PEG. Starting at 6PM the night before your procedure drink 1 8oz glasses at your own pace until you complete half of the gallon. Finish 2nd half of the gallon 5 hours before your procedure. 4000 mL Active Encounters Date Type Department Care Team Description 10/05/2024 12:43 PM EDT Anesthesia Event [facility] [address] [place] [id number] Karel Bae MD 10/05/2024 12:07 PM EDT - 10/05/2024 11:59 PM EDT Hospital Encounter [facility] [address] [place] [address] Maxim Fuentes MD Steele, Matthew G, CRNA Gomes, Sheldon B, MD Colon cancer screening Discharge Disposition: Home or Self Care 10/05/2024 Telephone Gastroenterology - [place] [address] [phone] Maxim Fuentes MD Special Procedure from Last 3 Months Social History Tobacco Use Types Packs/Day Years Used Date Smoking Tobacco: Never Assessed Sex and Gender Information Value Date Recorded Sex Assigned at Male 09/27/2024 3:40 PM EDT Legal Sex Male 12:30 PM EST Gender Identity Male 09/27/2024 3:40 PM EDT Sexual Orientation Not on file Last Filed Vital Signs Vital Sign Reading Time Taken Comments Blood Pressure - - Pulse - - Temperature - - Respiratory Rate - - Oxygen Saturation - - Inhaled Oxygen Concentration - - Weight 83.9 kg (185 lb) 09/28/2024 2:00 PM EDT Height 175.3 cm (5' 9 ) 09/28/2024 2:00 PM EDT Body Mass Index 27.32 09/28/2024 2:00 PM EDT Plan of Treatment Upcoming Encounters Date Type Department Care Team (Late st Contact Info) Description 12/06/2024 12:30 PM EDT Appointment [facility] [address] [place] [phone] Maxim Fuentes MD [address] [id number] Health Maintenance Due Date Last Done Comments Diabetes: Annual Foot Exam 11/07/1973 Diabetes: Annual Retina Eye Exam 11/07/1973 Pneumococcal Vaccine: 50+ Years (2 of 2 - PCV) 11/02/2019 11/01/2018 COVID-19 Vaccine (3 - season) 2023 05/06/2021, 03/18/2021 Depression Screening 04/05/2024 Colorectal Cancer Screening: Colonoscopy 07/27/2024 HIV Screening 07/27/2024 Social Influencers of Health Screening 07/27/2024 Influenza Vaccine (#1) 2024 Diabetes: Annual Urine Albumin-Creatinine Ratio (uACR) 01/05/2025 01/06/2024, 11/29/2018 Diabetes: Blood Sugar Control Test (HGBA1C) 02/21/2025 08/21/2024 Diabetes: Annual GFR (Glomerular Filtration Rate) 08/21/2025 08/21/2024, 05/19/2017 Hypertension/CHF/CAD Annual BMP Blood Test 08/21/2025 08/21/2024, 05/19/2017 Cholesterol Screening (Lipid Panel) 08/21/2029 08/21/2024, 08/21/2024, 02/11/2023, Additional history exists DTaP,Tdap,and Td Vaccines (3 - Td or Tdap) 07/09/2031 07/08/2021, 11/01/2018 RSV Immunization Adult Patients (1 - 1-dose 75+ series) 11/07/2038 Hepatitis B Vaccines Completed 08/06/2020, 12/02/2018, 11/01/2018 Hepatitis C Screening Completed 08/06/2020 Hepatitis A Vaccines Aged Out 05/06/2021, 08/07/19 21 No longer eligible based on patient's age to complete this topic Zoster Vaccines Completed 05/06/2021, 08/06/2020 HIB Vaccines Aged Out No longer eligi ble based on patient's age to complete this topic HPV Vaccines Aged Out No longer eligi ble based on patient's age to complete this topic IPV Vaccines Aged Out No longer eligi ble based on patient's age to complete this topic MMR Vaccines Aged Out No longer eligi ble based on patient's age to complete this topic Meningococcal ACWY Vaccine Aged Out N o longer eligible based on patient's age to complete this topic Meningococcal B Vaccine Aged Out No l onger eligible based on patient's age to complete this topic RSV Immunization Patients Under 20 months Aged Out No longer eligible based on patient's age to complete this topic Varicella Vaccines Aged Out No longer eligible based on patient's age to complete this topic [place] Care Teams Rn Surgical P[facility] Relationship Specialty Start Date End Date Elsa Chris PA [address] [place] [address] PCP - General 07/26/24
--- NOTE | 2024-10-26 15:40 | MHC.OFFVIS ---
Intake Visit Reasons: 3m/PSA Intake Note: Patient is present for 3M/PSA Urology Medication:TADALAFIL Antibiotic Allergy:NONE Blood Thinner:ASPIRIN Fowl Blood Tester Required: No Allergies No Known Allergies Allergy (Verified 10/26/24 21:35) Medication List - Last Reconciled 10/26/24 by ASIM Deshpande amlodipine 5 mg PO aspirin 81 mg PO DAILY atorvastatin 40 mg PO DAILY tadalafil (Cialis) 10 mg (2 x 5 mg) PO DAILY 90 days HPI Comments Details: Les is a very pleasant 58-year-old male patient of Dr. Chris. He has a past medical history of cigar dependence, type 2 diabetes, PTSD, depression, history of incarceration from 2012 to 2017, hypertension, and erectile dysfunction. He presents to the office today for follow-up of his erectile dysfunction. Of note, patient was seen approximately 3 months ago as a new patient for erectile dysfunction at which time he was started on low-dose 5 mg of Cialis daily and labs were ordered for further assessment evaluation. These results were reviewed with the patient today. PSA: 08/27 1.3 A1c: 08/27 6.2 He reports feeling low-dose Cialis has been somewhat helpful in maintaining his erections however feels he does continue to experience ED. he is able to obtain erections however feels maintaining erections are difficult. He does report libido. He otherwise denies any bothersome urinary issues. He denies urinary urgency, urinary frequency, incontinence, nocturia, hematuria, dysuria, foul smelling urine, changes to urinary stream, flank pain, fever, and or chills. He is happy with his current voiding parameters. In office urinalysis results reviewed with the patient today. We discussed at length potential causes of erectile dysfunction as well as further treatment options and risks and benefits of these treatment options. We also discussed importance of lifestyle modifications to assist with this urological condition as well as overall health and well-being. All questions were answered. He otherwise offers no other issues or concerns at this time. [facility] Medical History Erectile dysfunction Tobacco abuse Type 2 diabetes mellitus without complication, without long-term current use of insulin Post traumatic stress disorder (PTSD) Depression, major, in remission Class 1 obesity due to excess calories with body mass index (BMI) of 33.0 to 33.9 in adult Decreased hearing of right ear History of incarceration Hypertension Pre-diabetes Surgical History History of open reduction and internal fixation (ORIF) procedure Review of Systems Const All systems reviewed & are unremarkable except as noted in HPI and below Physical Exam Const General: cooperative, healthy appearing, comfortable, no acute distress, well developed, alert and awake Orientation/consciousness: patient oriented x3 Limitations: no limitations HEENT Head: Yes normal to inspection, Yes normocephalic and Yes atraumatic Ears: hearing grossly normal bilaterally Eyes General: appearance normal, both eyes and all related structures Neck Neck: Yes normal visual inspection and Yes trachea midline Chest Chest palpation & inspection: normal inspection of the chest Resp Effort & Inspection: normal respiratory effort and able to speak in complete sentences Cardio Rate: regular rate GI Inspection: Yes normal to inspection General: Yes no CVA tenderness Back/Spine/Pelvis Back: no CVA tenderness Skin General skin exam: no rashes or lesions noted Neuro General: patient oriented x3 Extrem General: Yes normal to inspection Psych Appearance: grossly normal and well kempt Mental Status: mental status grossly normal Speech and movement: Normal speech and movement present and Clear speech present Affect: normal affect Attitude: cooperative Thought process: Normal thought process present Thought content: Normal thought content present Insight: Fair insight present (Psych) Judgement: Fair judgement present (Psych) Results AMB Urinalysis, Automated UA Leukoctes 0 Manuel/uL Last Edit by ERIS Nuñez on 10/26/24 16:30 UA Nitrite Negative Last Edit by ERIS Nuñez on 10/26/24 16:30 UA Urobilinogen 0.2 mg/dL Last Edit by ERIS Nuñez on 10/26/24 16:30 UA Protein 15 mg/dL Last Edit by ERIS Nuñez on 10/26/24 16:30 UA pH 6.0 Last Edit by ERIS Nuñez on 10/26/24 16:30 UA Blood 0 Александр/uL Last Edit by ERIS Nuñez on 10/26/24 16:30 UA Specific [place] 1.025 Last Edit by ERIS Nuñez on 10/26/24 16:30 UA Ketone Negative Last Edit by ERIS Nuñez on 10/26/24 16:30 UA Bilirubin 0 mg/dL Last Edit by ERIS Nuñez on 10/26/24 16:30 UA Glucose 0 mg/dL Last Edit by ERIS Nuñez on 10/26/24 16:30 Results Reviewed Results Reviewed: Laboratory Last Values Urine pH (Auto) 6.0 10/26/24 16:30 Specific [place] (Auto) 1.025 10/26/24 16:30 Urine Protein (Auto) 15 mg/dL 10/26/24 16:30 Glucose (UA)(Auto) 0 mg/dL 10/26/24 16:30 Urine Ketones (Auto) Negative 10/26/24 16:30 Urine Blood (Auto) 0 Александр/uL 10/26/24 16:30 Urine Nitrite (Auto) Negative 10/26/24 16:30 Urine Bilirubin (Auto) 0 mg/dL 10/26/24 16:30 Urine Urobilinogen (Auto) 0.2 mg/dL 10/26/24 16:30 Leukocyte Esterase (Auto) 0 Manuel/uL 10/26/24 16:30 Assessment & Plan Assessment & Plan (1) Erectile dysfunction associated with type 2 diabetes mellitus: Code(s): E11.69 - Type 2 diabetes mellitus with other specified complication; N52.1 - Erectile dysfunction due to diseases classified elsewhere Category: Medical Plan In office urinalysis results reviewed with the patient today; as noted above. We discussed further treatment options of erectile dysfunction as well as risks and benefits of these treatment options We discussed importance of lifestyle modifications to assist with ED as well as overall health and well-being. Recent PSA and A1c results reviewed with the patient today; as noted above. Will increase Cialis to 10 mg daily as discussed and prescribed. We discussed the importance of management and diabetes for improvement in overall health and well-being as well as for ED. He currently denies any bothersome urinary issues or concerns. Reports be happy with current voiding parameters. Follow-up in 3 months with labs; or sooner with any issues, concerns, and or questions. Orders: Orders AMB Urinalysis Automated Today Z13.9 - Encounter for screening, unspecified Medications: Changed From tadalafil (Cialis) [id number] [facility] [id number] Member [id number] 5 mg PO DAILY 90 tabs 0RF 90 days To tadalafil (Cialis) [id number] [facility] GroupGDRX Member [id number] 10 mg (2 x 5 mg) PO DAILY 180 tabs 0RF 90 days Patient Instructions: The patient had an opportunity to ask questions regarding the treatment plan. All questions were answered. Physical exam, labs, and imaging were discussed and reviewed in detail. As well as risks, benefits, and discussion of treatment choices. No major barriers to understanding were identified. The patient expressed understanding and agreement with the above treatment plan. The patient was made aware they should contact our office by phone for worsening of their current condition, the appearance of new symptoms, or with any questions or concerns. Compliance is encouraged with any medications and follow up testing that is ordered. It is a privilege to be allowed the opportunity to participate in? your urological care.? Again, if you have any questions or concerns If you have any questions or concerns please do not hesitate to contact me. The office is [phone]. This note is constructed using voice recognition software. While every effort has been made to ensure accuracy product control and logistics analyst errors may have been included. Yours sincerely, ASIM Deshpande Coding Level of Care Code Est Pt Level 3 (50634) Complex EM visit Add On G2211 Diagnoses Erectile dysfunction associated with type 2 diabetes mellitus E11.69; N52.1
== END 2024-10-26 16:18 | disposition home or self-care (01) ==
LOC: HO.HUSH 15:20
PROVIDERS: PCP Student in an Organized Health Care Education/Training Program; Visit Provider Nurse Practitioner Family
DX: E11.69 Type 2 diabetes mellitus with other specified complication (principal); N52.1 Erectile dysfunction due to diseases classified elsewhere; Z13.9 Encounter for screening, unspecified
CPT/HCPCS: 99213

== ENCOUNTER → 2024-10-26 15:19 | Outpatient (BNVA) | payer MEDICAID, SELFPAY | PROVIDERS: PCP Student in an Organized Health Care Education/Training Program; Visit Provider Nurse Practitioner Family | DX: E11.69 Type 2 diabetes mellitus with other specified complication (principal); N52.1 Erectile dysfunction due to diseases classified elsewhere | CPT/HCPCS: 81003; 99212 ==